=== PATIENT | female | born 2000 | race Native Hawaiian/Other Pacific Islander ===

== ENCOUNTER 2025-04-03 14:50 | Emergency (ER) | payer SELFPAY ==
[2025-04-03] VITALS (9 sets, daily range): BP systolic 97–141; BP diastolic 53–68; PULSE 53–86; RESP 16; TEMP 36.6; O2SAT 98–100; BMI 24.9
[2025-04-03] MEDS: ONDANSETRON 4 MG/2 ML INJ IV ×2 (15:11→20:06)
[2025-04-03 15:21] LABS: Add Manual Diff / Slide Review NO; Hematocrit 40.6 % (36-46); Hemoglobin 13.8 g/dL (12.0-16.0); Lymphocytes Absolute Auto 1400 /uL (1100-4500); Mean Corpuscular HGB Conc 33.9 % (30-36); Mean Corpuscular Hemoglobin 28.2 PG (26-34); Mean Corpuscular Volume 83.3 fL (80-100); Platelet Count 279 X10^3/uL (150-400)
[2025-04-03 15:28] LABS: Alanine Aminotransferase 22 IU/L (<35); Albumin 4.7 g/dL (3.5-5.0); Albumin Globulin Ratio 1.4 (1.0-2.8); Alkaline Phosphatase 70 U/L (38-126); Blood Urea Nitrogen 6 mg/dL (7-17); Calcium 9.5 mg/dL (8.4-10.2); Carbon Dioxide 23 mmol/L (22-32); Chloride 106 mmol/L (98-107); Estimated Glomerular Filt Rate > 60 mL/min (>60); Globulin 3.3 g/dL (1.7-4.1); Glucose 101 mg/dL (70-99); HEMOLYSIS < 15 (0-50); Lipase 75 U/L (23-300); Potassium 3.6 mmol/L (3.4-5.1); Sodium 140 mmol/L (137-145); Total Protein 8.0 g/dL (6.3-8.2)
--- NOTE | 2025-04-03 16:36 | PC.NURSE ---
pt nauseated and dizzy. Rn to consult charge nurse.
--- NOTE | 2025-04-03 19:53 | ED.GENADULT ---
HPI - General Adult General Chief complaint: Abdominal Pain Stated complaint: Hit head last night, dizziness, nausea, abd pain R Time Seen by Provider: 04/03/25 19:19 Source: patient Mode of arrival: Ambulatory History of Present Illness HPI narrative: 25-year-old female last night stood up suddenly and hit the top of her head, increasing headache pain, today with multiple episodes of nausea and vomiting, tried to take a shower, when the water hit her head she had multiple episodes of nausea and vomiting nonbloody. She also has had right lower quadrant discomfort, had been treated with Flagyl and some other oral antibiotic for Gardnerella infection, recently off antibiotics. Some loose stools. No prior appendicitis or Gyne or other abdominopelvic surgeries. No abdominal truncal trauma recalled with head injury last night. No focal numbness to face arm or leg. No focal weakness to face arm or leg. Denies back pain, frequency of urination, painful urination. He does not take blood thinner medications. Related Data Allergies Allergy/AdvReac Type Severity Reaction Status Date / Time doxycycline AdvReac vomiting, Verified 04/03/25 14:56 hives Patient History Social History Smoking Status: Never smoker Smoking Status: Never smoker Exam Narrative Exam Narrative: GENERAL: Well-developed patient, in mild distress. HEAD: Atraumatic. Normocephalic. No lesions palpable scalp EYES: No obvious facial pain swelling injury patterns ENT: Nose without bleeding, purulent drainage. Throat without erythema, tonsillar hypertrophy or exudate. Airway patent. NECK: Trachea midline. Moves neck well, no midline or paraspinous muscular tenderness cervical spine region CARDIOVASCULAR: Regular rate and rhythm without murmurs, gallops, or rubs. RESPIRATORY: Clear to auscultation. Breath sounds equal bilaterally. No wheezes, rales, or rhonchi. GASTROINTESTINAL: Right lower quadrant mild tenderness, no guarding or rebound, normal bowel tones. Nondistended. EXTREMITIES: No edema or joint tenderness. BACK: Nontender without deformity or crepitance. No flank tenderness. NEURO: AOx3. Motor functions grossly nonfocal. SKIN: No rash or erythema of visible areas Initial Vital Signs Initial Vital Signs: Vital Signs Temperature 97.8 F 04/03/25 14:56 Pulse Rate 82 04/03/25 14:56 Respiratory Rate 16 04/03/25 14:56 Blood Pressure 108/68 04/03/25 14:56 Pulse Oximetry 99 04/03/25 14:56 Oxygen Delivery Method Room Air 04/03/25 14:56 Course Orders Ordered: ED Orders 04/03/25 20:04 CT head/brain wo con Stat 04/03/25 20:07 US pelvic complete Stat Discontinued Medications Hydrocodone Bitart/Acetaminophen (Hydrocodone/Acet 5/325 Tablet) 1 tab PO NOW ONE Stop: 04/03/25 23:07 Last Admin: 04/03/25 23:14 Dose: 1 tab Documented By: JAKI Hydrocodone Bitart/Acetaminophen (Hydrocodone/Acet 5/325 Prepack) 1 bottle MISC DIRECTED ONE Stop: 04/03/25 23:18 Last Admin: 04/03/25 23:55 Dose: 1 bottle Documented By: Diphenhydramine HCl (Diphenhydramine 50 Mg/Ml Vial) 25 mg IV NOW ONE Stop: 04/03/25 20:07 Last Admin: 04/03/25 20:10 Dose: 25 mg Documented By: BLADIMIR Ketorolac Tromethamine (Ketorolac 30 Mg/Ml Vial) 15 mg IV NOW ONE Stop: 04/03/25 20:05 Last Admin: 04/03/25 20:10 Dose: 15 mg Documented By: BLADIMIR Metoclopramide HCl (Metoclopramide 10 Mg/2 Ml Inj) 10 mg IV NOW ONE Stop: 04/03/25 21:03 Last Admin: 04/03/25 21:06 Dose: 10 mg Documented By: JAKI Ondansetron HCl (Ondansetron 4 Mg/2 Ml Inj) 4 mg IV NOW PRN PRN Reason: Nausea And Vomiting Last Admin: 04/03/25 15:11 Dose: 4 mg Documented By: RC Ondansetron HCl (Ondansetron 4 Mg Odt) 4 mg PO NOW PRN PRN Reason: Nausea And Vomiting Ondansetron HCl (Ondansetron 4 Mg/2 Ml Inj) 4 mg IV NOW ONE Stop: 04/03/25 20:00 Last Admin: 04/03/25 20:06 Dose: 4 mg Documented By: BLADIMIR Ondansetron HCl (Ondansetron 4 Mg/2 Ml Inj) 4 mg IV NOW ONE Stop: 04/03/25 20:05 Last Admin: 04/03/25 20:53 Dose: Not Given Documented By: JAKI Ondansetron HCl (Ondansetron 4 Mg Odt Prepack) 1 bottle MISC DIRECTED ONE Stop: 04/03/25 23:24 Last Admin: 04/03/25 23:56 Dose: 1 bottle Documented By: AB Vital Signs Vital signs: Vital Signs - 8 hr 04/03/25 19:54 04/03/25 21:33 04/03/25 21:49 Pulse Rate 70 60 81 Respiratory Rate 16 16 Blood Pressure 141/60 H 97/58 L Pulse Oximetry 100 100 98 Oxygen Delivery Method Room Air Room Air 04/03/25 21:50 04/03/25 21:50 04/03/25 22:00 Pulse Rate 75 53 L Respiratory Rate Blood Pressure 108/53 L Pulse Oximetry 100 99 Oxygen Delivery Method 04/03/25 22:00 04/03/25 22:30 04/03/25 22:30 Pulse Rate 57 L Respiratory Rate Blood Pressure 101/53 L 102/55 L Pulse Oximetry 99 Oxygen Delivery Method 04/03/25 23:00 04/03/25 23:00 04/03/25 23:30 Pulse Rate 86 62 Respiratory Rate 16 Blood Pressure 106/56 L 106/56 L Pulse Oximetry 100 98 Oxygen Delivery Method 04/03/25 23:30 Pulse Rate Respiratory Rate Blood Pressure 100/55 L Pulse Oximetry Oxygen Delivery Method Medical Decision Making Lab Data Lab results reviewed: Yes I reviewed the patient's lab results. Lab results narrative: White blood cell count 51029, hemoglobin 13.8, platelets adequate. Glucose 101. Normal renal function, serum CO2, electrolytes. Liver functions and lipase normal. Urine dip negative. Urine test negative. 04/03/25 15:04 04/03/25 15:04 Labs: Lab Results 04/03/25 Range/Units 15:04 WBC 11.4 H (4.5-11.0) X10^3/uL RBC 4.87 (4.0-5.2) X10^6/uL Hgb 13.8 (12.0-16.0) g/dL Hct 40.6 (36-46) % MCV 83.3 (80-100) fL MCH 28.2 (26-34) PG MCHC 33.9 (30-36) % RDW 13.9 (11.6-14.8) % Plt Count 279 (150-400) X10^3/uL Neut % (Auto) 76.2 H (50-75) % Lymph % (Auto) 12.1 L (25-40) % Nicholas % (Auto) 9.3 (3-14) % Eos % (Auto) 2.0 (2-4) % Baso % (Auto) 0.4 (0-2) % Neut # (Auto) 8700 H (1365-3594) /uL Lymph # (Auto) 1400 (0501-6859) /uL Nicholas # (Auto) 1100 H (0-900) /uL Eos # (Auto) 200 (0-450) /uL Baso # (Auto) 0 (0-100) /uL Sodium 140 (137-145) mmol/L Potassium 3.6 (3.4-5.1) mmol/L Chloride 106 (98-107) mmol/L Carbon Dioxide 23 (22-32) mmol/L BUN 6 L (7-17) mg/dL Creatinine 1.06 H (0.52-1.04) mg/dL Estimated GFR > 60 (>60) mL/min BUN/Creatinine Ratio 5.7 L (6-22) Glucose 101 H (70-99) mg/dL Calcium 9.5 (8.4-10.2) mg/dL Total Bilirubin 1.0 (0.2-1.3) mg/dL AST 25 (14-36) IU/L ALT 22 (<35) IU/L Alkaline Phosphatase 70 (38-126) U/L Total Protein 8.0 (6.3-8.2) g/dL Albumin 4.7 (3.5-5.0) g/dL Globulin 3.3 (1.7-4.1) g/dL Albumin/Globulin Ratio 1.4 (1.0-2.8) Lipase 75 (23-300) U/L Point of Care Testing Test Results Negative Urine Dip Bedside Urine Glucose Negative Bedside Urine Bilirubin - Negative Bedside Urine Ketone - Negative Urine Specific [place] 1.005 Bedside Urine Occult Blood - Negative Bedside Urine pH 6.5 Bedside Urine Protein - Negative Bedside Urine Urobilinogen - Negative Bedside Urine Nitrite - Negative Bedside Urine Leukocytes - Negative Esterase Point of care testing: Point of Care Testing Test Results Negative Urine Dip Bedside Urine Glucose Negative Bedside Urine Bilirubin - Negative Bedside Urine Ketone - Negative Urine Specific [place] 1.005 Bedside Urine Occult Blood - Negative Bedside Urine pH 6.5 Bedside Urine Protein - Negative Bedside Urine Urobilinogen - Negative Bedside Urine Nitrite - Negative Bedside Urine Leukocytes - Negative Esterase Imaging Data CT scan - head: Radiologist's Impression: [address] [address] [address] Scan Report Signed Patient: Chelita Altamirano MR#: [id number] : 2000 Acct:[id number] Age/Sex: 25 / F Date of Service: 04/03/25 Loc: ED Accession Number: [id number] Procedure: CT head/brain wo con Ordering Provider: Shyam Martinez MD PROCEDURE: CT HEAD/BRAIN WO CON INDICATIONS: head injury, inc pain, N/v multiple TECHNIQUE: Noncontrast 4.5 mm thick angled axial sections acquired from the foramen magnum to the vertex, with coronal and sagittal reformats. For radiation dose reduction, the following was used: automated exposure control, adjustment of mA and/or kV according to patient size. COMPARISON: None. FINDINGS: Image quality: Diagnostic. CSF spaces: Basal cisterns are patent. No extra-axial fluid collections. Ventricles are normal in size and shape. Brain: No midline shift. No intracranial mass effect or hemorrhage. Davalos-white matter interface is normal. Skull and face: Calvarium and visualized facial bones are intact, without suspicious lesions. Sinuses: Visualized sinuses and mastoids are clear. IMPRESSION: No acute intracranial pathology. Dictated by: Sheeba Villa M.D. on 04/03/2025 at 20:54 Approved by: Sheeba Villa M.D. on 04/03/2025 at 20:56 Ultrasound pelvis: Radiologist's Impression: [address] [address] Ultrasound Report Signed Patient: Chelita Altamirano MR#: [id number] : 2000 Acct:[id number] Age/Sex: 25 / F Date of Service: 04/03/25 Loc: ED Accession Number: [id number] Procedure: US pelvic complete Ordering Provider: Shyam Martinez MD PROCEDURE: US PELVIC COMPLETE INDICATIONS: RLQ pain TECHNIQUE: Real-time scanning was performed of the pelvic organs, with image documentation. Additional endovaginal scanning was necessary due to incomplete visualization of the adnexal and endometrial structures by transabdominal scanning. COMPARISON: None. FINDINGS: Uterus: Uterus is anteverted and normal in size at 8.0 x 3.5 x 5.5 cm. The myometrium is homogeneous. The endometrium measures 9 mm combined thickness. Ovaries: The right ovary measures 4.0 x 4.3 x 3.3 cm, with a calculated ovarian volume of 30 cc, including a complex avascular cyst measuring 3.2 x 2.1 x 2.5 centimeters, with imaging features suggestive of a hemorrhagic cyst. The left ovary measures 2.2 x 3.0 x 1.7 cm, with a calculated ovarian volume of 5.9 cc. The ovaries have a normal sonographic appearance and demonstrate normal vascular flow. Less than 12 follicles can be seen in each ovary. No adnexal masses are seen. Other: No pathologic free abdominal or pelvic fluid. IMPRESSION: No acute sonographic abnormality. 3.2 cm right ovary hemorrhagic cyst, which does not meet criteria for follow up in a pre-menopausal patient per ACR recommendations. We strive to produce accurate, complete, and clear reports of imaging services. To assist us in improving patient care, this report was composed using standard report templates and voice recognition software. Therefore, it may contain abnormal punctuation, insertions and/or omissions. Occasional wrong-word or sound-alike substitutions may occur. Though we review the report and make efforts to correct it, we do recommend that the report be read carefully in proper context to recognize any text inaccuracies. Dictated by: Sheeba Villa M.D. on 04/03/2025 at 23:26 Approved by: Sheeba Villa M.D. on 04/03/2025 at 23:31 [facility] Narrative Medical decision making narrative: 25-year-old female had minor sounding head injury last night rising up striking the top of her head, no blood thinner medications, however has increasing headache and nausea and vomiting, nonfocal neuro exam. Also recently treated with Flagyl and some other oral systemic antibiotic for Gardnerella infection, off antibiotics, having some loose stools, and now having right lower quadrant pain through the day today. History of left-sided ovarian cyst. Still feels quite nauseated after multiple dose IV/oral Zofran. CT head noncontrast ordered. IV Reglan/Benadryl for nausea control, might help with headache. Lab data: White blood cell count 22362, hemoglobin 13.8, platelets adequate. Glucose 101. Normal renal function, serum CO2, electrolytes. Liver functions and lipase normal. Urine dip negative. Urine test negative. CT head no acute changes, see radiology report. Ultrasound pelvis. Showed right-sided 3.2 cm diameter hemorrhagic ovarian cyst, no free fluid, blood flow adequate to both ovaries. See radiology report. Right pelvic pain might be due to right-sided hemorrhagic cyst. Likely no need for CT abdomen and pelvis further abdominal imaging, patient/family agree. Symptomatic we improved from analgesics and antinausea medications above, CT head negative. Copies of radiology reports provided with discussion of results. Discharged home with family. Return precautions discussed. Discharge Plan Departure Patient Disposition: Home Clinical Impression: Contusion of head, Headache, Nausea and vomiting, Abdominal pain, Ovarian cyst Instructions: DI for Ovarian Cyst, DI for Headache Activity Restrictions/Additional Instructions: Bump to the head with recurrent nausea and vomiting and increasing headache. CT scan of the head showed no acute changes. IV antinausea medication and pain medications were given, symptoms improved. Also with right lower quadrant abdominal discomfort, pelvic ultrasound done shows hemorrhagic cyst of relatively small size on the right ovary region, with good blood flow, no free flow or bleeding into the pelvis at this time. Follow up with Gynecology as needed, consider recheck next week. Antinausea medications given for discharge. Pain medication given for discharge. Referrals: Fartun Bond DO [Physician, [employer]] Stand Alone Forms: Patient Portal/API, Work Release Note
--- NOTE | 2025-04-03 20:04 | DI.CT.S_ITS ---
PROCEDURE: CT HEAD/BRAIN WO CON INDICATIONS: head injury, inc pain, N/v multiple TECHNIQUE: Noncontrast 4.5 mm thick angled axial sections acquired from the foramen magnum to the vertex, with coronal and sagittal reformats. For radiation dose reduction, the following was used: automated exposure control, adjustment of mA and/or kV according to patient size. COMPARISON: None. FINDINGS: Image quality: Diagnostic. CSF spaces: Basal cisterns are patent. No extra-axial fluid collections. Ventricles are normal in size and shape. Brain: No midline shift. No intracranial mass effect or hemorrhage. Davalos- white matter interface is normal. Skull and face: Calvarium and visualized facial bones are intact, without suspicious lesions. Sinuses: Visualized sinuses and mastoids are clear. IMPRESSION: No acute intracranial pathology. Dictated by: Sheeba Villa M.D. on 04/03/2025 at 20:54 Approved by: Sheeba Villa M.D. on 04/03/2025 at 20:56
--- NOTE | 2025-04-03 20:07 | DI.US.S_ITS ---
PROCEDURE: US PELVIC COMPLETE INDICATIONS: RLQ pain TECHNIQUE: Real-time scanning was performed of the pelvic organs, with image documentation. Additional endovaginal scanning was necessary due to incomplete visualization of the adnexal and endometrial structures by transabdominal scanning. COMPARISON: None. FINDINGS: Uterus: Uterus is anteverted and normal in size at 8.0 x 3.5 x 5.5 cm. The myometrium is homogeneous. The endometrium measures 9 mm combined thickness. Ovaries: The right ovary measures 4.0 x 4.3 x 3.3 cm, with a calculated ovarian volume of 30 cc, including a complex avascular cyst measuring 3.2 x 2.1 x 2.5 centimeters, with imaging features suggestive of a hemorrhagic cyst. The left ovary measures 2.2 x 3.0 x 1.7 cm, with a calculated ovarian volume of 5.9 cc. The ovaries have a normal sonographic appearance and demonstrate normal vascular flow. Less than 12 follicles can be seen in each ovary. No adnexal masses are seen. Other: No pathologic free abdominal or pelvic fluid. IMPRESSION: No acute sonographic abnormality. 3.2 cm right ovary hemorrhagic cyst, which does not meet criteria for follow up in a pre-menopausal patient per ACR recommendations. We strive to produce accurate, complete, and clear reports of imaging services. To assist us in improving patient care, this report was composed using standard report templates and voice recognition software. Therefore, it may contain abnormal punctuation, insertions and/or omissions. Occasional wrong-word or sound-alike substitutions may occur. Though we review the report and make efforts to correct it, we do recommend that the report be read carefully in proper context to recognize any text inaccuracies. Dictated by: Sheeba Villa M.D. on 04/03/2025 at 23:26 Approved by: Sheeba Villa M.D. on 04/03/2025 at 23:31
[2025-04-03] MEDS: KETOROLAC 30 MG/ML VIAL 15 MG IV (20:10)
[2025-04-03] MEDS: diphenhydrAMINE 50 MG/ML VIAL 25 MG IV (20:10)
[2025-04-03] MEDS: METOCLOPRAMIDE 10 MG/2 ML INJ IV (21:06)
[2025-04-03] MEDS: ONDANSETRON 4 MG ODT PREPACK 1 BOTTLE MISC (23:56)
== END 2025-04-04 00:02 | disposition home or self-care (01) ==
PROVIDERS: Emergency Medicine; Emergency Provider Emergency Medicine
DX: S00.03XA Contusion of scalp, initial encounter (principal); R11.2 Nausea with vomiting, unspecified; N83.201 Unspecified ovarian cyst, right side; W22.8XXA Striking against or struck by other objects, initial encounter
CPT/HCPCS: 36415; 70450; 76830; 76856; 80053; 81003; 81025; 83690; 85025; 93975; 96374; 96375; 96376; 99284; J1200; J1885; J2405; J2765